=== PATIENT | male | born 1985 | race American Indian/Alaskan Native ===

== ENCOUNTER 2020-05-29 00:30 | Emergency (ER) | payer SELFPAY ==
--- NOTE | 2020-05-29 00:35 | Emergency Department Report ---
ED CPR HPI - General Chief Complaint: Cardiac Arrest/CPR Stated Complaint: CARDIAC ARREST Time Seen by Provider: 05/29/20 00:34 Source: family, EMS, RN notes reviewed Mode of arrival: Stretcher Limitations: Altered Mental Status, Physical Limitation - History of Present Illness Initial Comments: The patient was evaluated in the emergency department for symptoms described in the history of present illness. He/she was evaluated in the context of the global COVID-19 pandemic, which necessitated consideration that the patient might be at risk for infection with the virus that causes COVID-19. Institutional protocols and algorithms that pertain to the evaluation of patients at risk for COVID-19 are in a state of rapid change based on information released by regulatory bodies including the CDC and federal and state organizations. These policies and algorithms were followed during the patient's care in the emergency department. Please note that these policies, procedures and recommendations changed on a rapid basis. This is a 35-year-old gentleman. He is not known to myself previously. He is brought to the hospital by emergency medical services as out of hospital nontraumatic cardiac arrest. 911 initially received phone call for possible seizure. Apparently, the patient was having some sort of convulsive event in bed. It is not known how long this lasted for. EMS reports that when they arrived to see this patient at the site, he was not breathing, and did not have a pulse. EMS reports a shockable rhythm. EMS reports aggressive chest compressions administered by themselves, but not by bystanders. EMS reports that they shocked the patient, gave multiple rounds of epinephrine, and amiodarone. They also placed a supraglottic Burak airway. EMS estimates approximately 35 to 40 minutes from their first medical contact, to arrival to this emergency room. In the field, rhythm deteriorated to pulseless electrical activity, without signs of neurologic activity. EMS continues high-quality CPR, and standard ACLS interventions. Upon arrival to this emergency room, patient receiving active CPR, has a GCS of 3, pupils are dilated and do not react to light, and he is found to be in pulseless electrical activity. Standard ACLS interventions are continued, but pulses are not able to be obtained. Unfortunately, resuscitation efforts were terminated secondary to prolonged downtime, medical futility. The patient's family was subsequently informed. Complaint: stopped breathing, seizure -: minute(s) Place: home, other (Patient reportedly in bed with significant other) Bystander CPR Performed: No AED Applied by Bystander/Senior Security Analyst: No Initial Findings in the Field: unresponsive, no respirations, no pulse, VTACH/VFIB ROSC in the Field: No Associated Injuries: No Treatments Prior to Arrival: other airway device, chest compressions, defribrillated shocks #, epinephrine mgs #, amiodarone - Related Data Previous Rx's Medication Instructions Recorded Last Taken Type amLODIPine [Norvasc] 5 mg PO DAILY #60 tab 01/14/14 Unknown Rx Allergies Allergy/AdvReac Type Severity Reaction Status Date / Time No Known Allergies Allergy Unverified 01/14/14 00:18 ED Review of Systems ROS: Stated complaint: CARDIAC ARREST Other details as noted in HPI Comment: Unobtainable due to pts medical conditions ED Past Medical Hx - Past Medical History Hx Hypertension: Yes - Surgical History Hx Appendectomy: Yes - Social History Smoking Status: Never Smoker Substance Use Type: None - Medications Home Medications: Home Medications Medication Instructions Recorded Confirmed Last Taken Type amLODIPine [Norvasc] 5 mg PO DAILY #60 tab 01/14/14 Unknown Rx ED Physical Exam - General Limitations: Altered Mental Status, Physical Limitation General appearance: obtunded, obese - Head Head exam: Present: atraumatic, normocephalic - Eye Eye exam: Present: normal appearance, other (Pupils dilated, do not react to light) - ENT ENT exam: Present: mucous membranes moist, other (Burak airway noted in oropharynx) - Neck Neck exam: Present: normal inspection - Respiratory Respiratory exam: Present: other (The patient is apnea). Absent: normal lung sounds bilaterally, respiratory distress, wheezes, rales, rhonchi, stridor - Cardiovascular Cardiovascular Exam: Present: other (The patient is pulseless). Absent: regular rate, normal rhythm, systolic murmur, diastolic murmur, rubs, gallop - GI/Abdominal GI/Abdominal exam: Present: soft. Absent: pulsatile mass - Rectal Rectal exam: Present: deferred - Extremities Exam Extremities exam: Present: normal inspection, other (I/O line noted in right lower extremity. The patient is pulseless.) - Back Exam Back exam: Present: normal inspection - Neurological Exam Neurological exam: Present: other (Intubated, GCS of 3T) - Psychiatric Psychiatric exam: Present: other (The patient is nonverbal) - Skin Skin exam: Present: warm, dry, intact, normal color. Absent: rash ED Medical Decision Making - Medical Decision Making Differential diagnosis, including but not limited to: Malignant arrhythmia, coronary artery disease, pulmonary embolism, sepsis, perforation, intracranial hemorrhage Critical care attestation.: If time is entered above; I have spent that time in minutes in the direct care of this critically ill patient, excluding procedure time. ED Disposition Clinical Impression: Cardiac arrest Disposition: [id number] Is pt being admited?: No Does the pt Need Aspirin: No Condition: Undetermined
[2020-05-31 17:01] LABS: Hepatitis B Surface Antigen TNR (Negative); Hepatitis C Virus Antibody TNR (NonReactive)
== END 2020-05-29 03:30 ==
LOC: ED 00:30
DX: I46.9 Cardiac arrest, cause unspecified (principal); I10 Essential (primary) hypertension; Z90.49 Acquired absence of other specified parts of digestive tract; Z98.890 Other specified postprocedural states
CPT/HCPCS: 92950